=== PATIENT | male | born 1945 | race Caucasian/White ===

== ENCOUNTER 2016-11-24 09:10 | Day surgery (SDC) | payer OTHER ==
[~2016-11-24 09:10] MED LIST: AMLODIPINE BESYL5 MG PO; ASPIRIN ADULT L81 M1 PO; ATENOLOL25 MG PO; ATORVASTATIN CA40 MG PO; BENAZEPRIL HCL20 MG PO; MELOXICAM15 MG PO; MULTIPLE VITAMIN PO; VITAMIN D-31000 UNIT PO
[2016-11-24] MEDS ORDERED: HYCET1 ML PO (11:51)
--- NOTE | 2016-11-24 11:52 | Provider's Discharge Care Plan ---
Problem, Goal, Plan Problem List 1. S/P LAP REPAIR LIH (GUERITA REPAIR) Goals: Improve function, Therapeutic intervention Instructions: Follow up as directed, Take meds as directed
--- NOTE | 2016-11-24 11:52 | Provider's Discharge Care Plan ---
Problem, Goal, Plan Problem List 1. S/P LAP REPAIR LIH (GUERITA REPAIR) Goals: Improve function, Therapeutic intervention Instructions: Follow up as directed, Take meds as directed
--- NOTE | 2016-11-24 12:22 | OPERATIVE REPORT ---
DATE OF SURGERY: 11/24/2016 SURGEON: Sophia Mckeon III, MD [employer] DEPARTMENT: None. PREOPERATIVE DIAGNOSIS: 1. Incarcerated left inguinal hernia POSTOPERATIVE DIAGNOSIS: 1. Incarcerated left inguinal hernia PROCEDURE PERFORMED: 1. Laparoscopic reduction of incarcerated left indirect inguinal hernia and repair of left indirect inguinal hernia with 14 x 11 cm preperitoneal mesh (GUERITA) repair. ANESTHESIA: General endotracheal. INDICATIONS: The patient is a 71-year-old male with symptomatic left inguinal hernia that was not reducible scheduled for repair. SURGICAL FINDINGS: The patient was noted to have an incarcerated left indirect inguinal hernia containing omentum, sigmoid and small bowel. SURGICAL TECHNIQUE: The patient was brought to the operating room and placed in the dorsal supine position, where he underwent general endotracheal anesthesia by the anesthesiology department. After proper anesthesia had taken effect, the patient 's abdomen was prepped using Betadine and draped in a sterile fashion. An infraumbilical incision made, carried down through skin and subcutaneous tissue. A Veress needle was inserted through this site into the abdominal cavity and after ascertaining its appropriate position with suction irrigation, pneumoperitoneum obtained using CO2 insufflation to approximately 14-15 mmHg pressure. Once this pressure was reached, the Veress needle was removed and replaced with a 10 mm trocar. The trocar removed leaving the sleeve behind, through which a laparoscopic video camera was introduced in the abdominal cavity. Under direct visualization, a separate 10 mm trocar was placed in the left lower quadrant and a 5 mm trocar was placed in the right lower quadrant. Each entered the abdominal cavity under direct visualization. The trocars were removed, leaving the sleeves behind, through which laparoscopic instrumentation was introduced into the abdominal cavity. The incarcerated contents of the indirect hernia were reduced. This was quite tedious and time consuming and took at least one-third of the case to perform. Using gentle manipulation and electrocautery dissection and external pressure on the groin, we were able to reduce the omentum, the sigmoid and the portion of the small bowel. Once the hernia was reduced, we were able to incise the peritoneum overlying the hernia. This incision was carried out medial to the lateral umbilical ligament and out lateral and inferior to the anterior superior iliac crest spine. The inferior peritoneal flap was created using a combination of blunt dissection and electrocautery. In the process, we were able to identify Star's ligament and tediously reduce the large indirect hernia sac. Once this was completed, we were able to identify the cord structures. A piece of mesh was selected, cut in an ovoid fashion measuring approximately 14 x 11 cm. A piece of Covidien ProGrip mesh was then selected, cut to those dimensions, placed in the preperitoneal space in proper orientation and placed in such a fashion to prevent shifting and obliterating the indirect ring. The inferior peritoneal flap was raised up and attached to the upper portion of peritoneum using the V-Loc suture. The mesh was then reperitonealized. Once completed, approximately 30 mL of 0.5% Marcaine with epinephrine were placed in the preperitoneal space for postoperative analgesia. The pneumoperitoneum released and all trocars were removed from the abdominal cavity. All trocar sites approximated using 4-0 subdermal Polysorb and Steri-Strips. A sterile pressure occlusive dressing was placed over each site. The patient tolerated the procedure well, was extubated and transferred to the recovery room in stable condition. There were no intraoperative or anesthetic complications.
== END 2016-11-24 15:15 | disposition home or self-care (01) ==
LOC: OR SRH 09:10 → SCU SRH 09:15
PROVIDERS: Specialist
PROC: 0YU64JZ Supplement Left Inguinal Region with Synthetic Substitute, Percutaneous Endoscopic Approach (ICD-10-PCS; principal; 2016-11-24 11:15)
DX: K40.30 Unilateral inguinal hernia, with obstruction, without gangrene, not specified as recurrent (principal); I10 Essential (primary) hypertension
CPT/HCPCS: 29240; 50002; 60001; 70002; 80102; 80212; 80248; 82669; 83587; 83711; 83919; 83982; 84038; 84227; 84322